=== PATIENT | female | born 1950 | race Caucasian/White ===

== ENCOUNTER 2022-10-12 12:51 | Outpatient (OUT) | payer MEDICARE, OTHER, SELFPAY ==
--- NOTE | 2022-10-12 13:30 | MM_ITS ---
Patient: CHARISSA MORTENSEN Exam Date: 10/12/2022 : 1950 Gender:F Ordering : DR BIBI ALEXANDER M.D. Admission #: [id number] Family : Order #: [id number] CLICK HERE TO VIEW EXAM RADIOLOGY REPORT PROCEDURE: MM TOMOSYNTHESIS SCREENING BI COMPARISON: MG MAMM SCREEN MADDY W CAD, 04/23/2019. MG MAMM SCREEN MADDY W CAD, 07/07/2021. INDICATIONS: Screening Calculator Name NCI Breast Cancer Risk Assessment Tool 5 Year Breast Cancer Risk 2.90% Lifetime Breast Cancer Risk 8.30% Personal Breast Cancer No Personal Ovarian Cancer No Treatments None Family Cancers Father with prostate cancer at age 88. LOCATION: [facility] BREAST COMPOSITION: Heterogeneously dense,which may obscure small masses. FINDINGS: DIAGNOSTIC CATEGORY 2--BENIGN FINDING. NO CHANGE FROM COMPARISON. Scattered benign-appearing nodules are present. Scattered benign-appearing calcifications are present. Scattered benign-appearing lymph nodes are present. RIGHT BREAST: No significant suspicious finding. LEFT BREAST: No significant suspicious finding. RECOMMENDATIONS: ROUTINE MAMMOGRAM AND CLINICAL EVALUATION IN 12 MONTHS. PLEASE NOTE: A NORMAL MAMMOGRAM DOES NOT EXCLUDE THE POSSIBILITY OF BREAST CANCER. A CLINICALLY SUSPICIOUS PALPABLE LUMP SHOULD BE BIOPSIED. Dictated by: Ceferino Barcenas MD on 10/13/2022 at 06:50 Approved by: Ceferino Barcenas MD on 10/13/2022 at 06:59
== END 2022-10-12 12:52 | disposition home or self-care (01) ==
LOC: MAMMO 12:51
PROVIDERS: PCP Internal Medicine; Visit Provider Internal Medicine
DX: Z12.31 Encounter for screening mammogram for malignant neoplasm of breast (principal); Z80.42 Family history of malignant neoplasm of prostate
CPT/HCPCS: 77063; 77067

== ENCOUNTER 2024-07-25 13:22 | Outpatient (OUT) | payer MEDICARE, OTHER, SELFPAY ==
--- OUTSIDE RECORDS SUMMARY | 2024-07-25 13:24 | XMS_ITS | Encounter Summary ---
Author Organization [facility] Address [address] [place] [address] Care Team Providers Care Graduate Assistant Name Role Phone Duran Moulton MD Unavailable [phone] Duran Moulton MD Primary Care Provider [phone] Ever Neal MD Unavailable Unavailable Encounter Details Date Type Department Care Team (Late Contact Info) Description 10/13/2022 Abstract [facility] [address] [facility] [address] [place] [phone] Duran Moulton MD [address] [facility] [address] [place], [place] [id number] Social History Tobacco Use Types Packs/Day Years Used Date Smoking Tobacco: Every Day Cigarettes Smokeless Tobacco: Never Alcohol Use Standard Drinks/Week Comments Never 0 (1 standard drink = 0.6 oz pur e alcohol) caffeine: soda Comments Unknown Sex and Gender Information Value Date Recorded Sex Assigned at Not on file Legal Sex Female 7:12 PM EDT Gender Identity Not on file Sexual Orientation Not on file documented as of this encounter Plan of Treatment Upcoming Encounters Date Type Department Care Team (Late Contact Info) Description 09/03/2024 1:00 PM EDT Office Visit [facility] [address] [facility] [address] [place] [phone] Duran Moulton MD [address] [facility] [address] [place] [address] 01/03/2025 2:00 PM EST Office Visit [facility] [address] [place] [address] Kayli Perdomo MD [address] [facility] [address] [place] [address] documented as of this encounter Visit Diagnoses Not on filedocumented in this encounter Care Teams Graduate Assistant Relationship Specialty Start Date End Date Durna Moulton MD [address] [facility] [address] [place] [address] PCP - ACO Reach 07/22/22 Duran Moulton MD [address] [facility] [address] [place] [address] PCP - General Internal Medicine 09/07/22 Ever Neal MD [address] [facility] [address] [place] [address] Referring Physician Neurology 02/06/24 documented as of this encounter
--- OUTSIDE RECORDS SUMMARY | 2024-07-25 13:24 | XMS_ITS | Encounter Summary ---
Author Organization [facility] Address [address] [facility] [address] [place] [address] Care Team Providers Care Central Office Trouble Shooter Name Role Phone Duran Moulton MD Unavailable [phone] Duran Moulton MD Primary Care Provider [phone] Ever Neal MD Unavailable Unavailable Encounter Details Date Type Department Care Team (Late Contact Info) Description 08/29/2023 Abstract [facility] [address] [facility] 110 [place] [phone] Duran Moulton MD [address] [facility] 110 [place], [place] [phone] Social History Tobacco Use Types Packs/Day Years [...] Visit [facility] [address] [facility] [address] [place] [phone] Duran Moulton MD [address] [facility] 110 [place] [address] 01/03/2025 2:00 PM EST Office Visit [facility] [address] [place] [address] Kayli Perdomo MD [address] [facility] [address] [place] [address] documented as of this encounter Visit Diagnoses Not on filedocumented in this encounter Care Teams Central Office Trouble Shooter Relationship Specialty Start Date End Date Duran Moulton MD [address] [facility] 110 [place] [address] PCP - ACO Reach 07/22/22 Duran Moulton MD [address] [facility] [address] [place] [address] PCP - General Internal Medicine 09/07/22 Ever Neal MD [address] [facility] [address] [place] [address] Referring Physician Neurology 02/06/24 documented as of this encounter
--- OUTSIDE RECORDS SUMMARY | 2024-07-25 13:25 | XMS_ITS | Clinical Summary ---
Author Organization [facility] Address [address] [place] [address] Care Team Providers Care Director Of Radio Services Name Role Phone Duran Moulton MD Primary Care Provider [phone] Allergies Active Allergy Reactions Criticality Noted Date Comments Environmental/Seasonal 07/18/2017 Sinus sx Medications citalopram (CELEXA) 40 MG tablet Take 40 mg by mouth daily Active lisinopril (PRINIVIL;ZESTR IL) 2.5 MG tablet Take 2.5 mg by mouth daily Active simvastatin (ZOCOR) 20 MG tablet Take 20 mg by mouth nightly Active cyclobenzaprine (FLEXERIL) 10 MG tablet Take 10 mg by mouth 3 times daily as needed 3 06/30/2017 Active vitamin C (ASCORBIC ACID) 500 MG tablet Take 500 mg by mouth daily Active Active Problems Problem Noted Date Diagnosed Date Left knee pain 04/14/2021 Vertebral fracture, osteoporotic 04/14/2021 Alzheimer's dementia without behavioral disturba nce 04/14/2021 Lumbar stenosis with neurogenic claudication HTN (hypertension) 07/18/2017 Hyperlipidemia 07/18/2017 Shoulder pain, bilateral 07/18/2017 Tobacco use disorder 07/18/2017 Skull fracture 07/18/2017 Overview (07/18/2017): As a child / fell off hay loft > 12 feet / no seizures Lumbar stenosis 07/18/2017 Spondylolisthesis at L4-L5 level 07/18/2017 Family History Medical History Relation Name Comments Arthritis Brother x 2 High Cholesterol Brother x 2 Alzheimer's Disease Father Cancer Father prostate cancer COPD Mother Heart Disease Mother 5 vessel bypas s Stroke Mother High Blood Pressure Son x 1 Relation Name Status Comments Brother x 2 Alive Daughter x 1 Alive Father Mother Sister none Son x 1 Alive Social History Tobacco Use Types Packs/Day Years Used Date Smoking Tobacco: Every Day Cigarettes 0.5 42 Smokeless Tobacco: Never Alcohol Use Standard Drinks/Week Comments No 0 (1 standard drink = 0.6 oz pur e alcohol) Comments Unknown Sex and Gender Information Value Date Recorded Sex Assigned at Not on file Legal Sex Female 1:45 PM EDT Gender Identity Not on file Sexual Orientation Not on file Last Filed Vital Signs Vital Sign Reading Time Taken Comments Blood Pressure 126/76 04/14/2021 9:56 AM EST Pulse 87 07/21/2017 8:07 AM EDT Temperature 36.7 C (98.1 F) 04/14/2021 9:56 AM EST Respiratory Rate 18 07/21/2017 8:07 AM EDT Oxygen Saturation 97% 07/21/2017 8:07 AM EDT Inhaled Oxygen Concentration - - Weight 59 kg (130 lb) 04/14/2021 9:56 AM EST Height 152.4 cm (5') 04/14/2021 9:56 AM EST Body Mass Index 25.39 04/14/2021 9:56 AM EST Plan of Treatment Not on file Medical Devices Implanted Type Area Animal Skinner Device Identifier Shelf Expiration Date Model / Serial / Lot Kit Sealant Surgiflo Hemostatic Matrix Implanted:Qty: 1 on 07/19/2017 by Jesse Edwards MD at [facility] Bone/[place] t/Tissue/ Human/Syn th N/A: Back [place]: [employer]-PMM 09/27/2018 [id number] / / [id number] Bone Matrix Osteocel Pro Cellular Med - [id number] Implanted:Qty: 1 on 07/19/2017 by Jesse Edwards MD at [facility] Bone/[place] t/Tissue/ Human/Syn th N/A: Back [employer]-PMM 11/26/2020 [id number] / [id number] / [id number] Bone Matrix Osteocel Pro Cellular Med - [id number] Implanted:Qty: 1 on 07/19/2017 by Jesse Edwards MD at [facility] Bone/[place] t/Tissue/ Human/Syn th N/A: Back [employer]-PMM 11/26/2020 [id number] / [id number] / [id number] Graft Canc Chip 30cc 1.3wk19fu - [id number] Implanted:Qty: 1 on 07/19/2017 by Jesse Edwards MD at [facility] Bone/[place] t/Tissue/ Human/Syn th N/A: Back [employer] FND-PMM [id number] / [id number] / Screw Lk Reline Opn [place] 5.5mm - [id number] Implanted:Qty: 4 on 07/19/2017 by Jesse Edwards MD at [facility] Spine N/A: Back [employer]-PMM [id number] / [id number] / Impl Spine Fracisco Reline-O Lrdtc 5.5x40mm - [id number] Implanted:Qty: 2 on 07/19/2017 by Jesse Edwards MD at [facility] Spine N/A: Back [employer]-PMM [id number] / [id number] / Impl Spine Coroent Lg 4t4y24km - [id number] Implanted:Qty: 2 on 07/19/2017 by Jesse Edwards MD at [facility] Spine N/A: Back [employer]-PMM [id number] / [id number] / Sys Fix Reline 0x Conn 40 50mm 5.5lp Adj - [id number] Implanted:Qty: 1 on 07/19/2017 by Jesse Edwards MD at [facility] Spine N/A: Back [employer]PMM [id number] / [id number] / Reline Implanted:Qty: 4 on 07/19/2017 by Jesse Edwards MD at [facility] N/A: Back [id number] / [id number] / Insurance MEDIC[place] [employer] [place] [employer] [employer] [place] Advance Directives Documents on File Type Date Recorded Patient Bacteriologist Medical Expl anation ACP-Advance Directive 07/22/2017 2:27 AM * Full Code (Latest Code Status on File) Date Activated Date Inactivated Comments 07/19/2017 3:00 PM 07/21/2017 5:38 PM Care Teams Director Of Radio Services Relationship Specialty Start Date End Date Duran Moulton MD [address] [facility] [address] [place] [address] PCP - General Internal Medicine 07/15/17
--- OUTSIDE RECORDS SUMMARY | 2024-07-25 13:25 | XMS_ITS | Encounter Summary ---
Author Organization [facility] Address [address] [place] [address] Care Team Providers Care Irs Agent Name Role Phone Duran Moulton MD Unavailable [phone] Duran Moulton MD Primary Care Provider [phone] Ever Neal MD Unavailable Unavailable Encounter Details Date Type Department Care Team (Late Contact Info) Description 12/30/2022 Abstract [facility] [address] [facility] [address] [place] [phone] Duran Moulton MD [address] [facility] [address] [place], [place] [phone] Social History Tobacco Use Types Packs/Day Years [...] [address] [facility] [address] [place] [phone] Duran Moulton MD [address] [facility] [address] [place] [address] 01/03/2025 2:00 PM EST Office Visit [facility] [address] [place] [address] Kayli Perdomo MD [address] [facility] [address] [place] [address] documented as of this encounter Visit Diagnoses Not on filedocumented in this encounter Care Teams Irs Agent Relationship Specialty Start Date End Date Duran Moulton MD [address] [facility] [address] [place] [address] PCP - ACO Reach 07/22/22 Duran Moulton MD [address] [facility] [address] [place] [address] PCP - General Internal Medicine 09/07/22 Ever Neal MD [address] [facility] [address] [place] [address] Referring Physician Neurology 02/06/24 documented as of this encounter
--- OUTSIDE RECORDS SUMMARY | 2024-07-25 13:25 | XMS_ITS | Clinical Summary ---
Author Organization [facility] Address [address] [facility] [place] [address] Care Team Providers Care Chief Optometry Service Name Role Phone Duran Moulton MD Unavailable [phone] Duran Moulton MD Primary Care Provider Ever Neal MD Unavailable Unavailable Allergies No known active allergies Medications HANDICAP PLACARD 5 YEAR 1 (one) time each day at the same time. 11/05/19 22 Active FeroSul 325 (65 Fe) MG tabletIndication s:Iron deficiency TAKE 1 TABLET BY MOUTH ONCE DAILY 90 tablet 3 07/12/19 24 Active citalopram (CeleXA) 40 MG tabletIndication s:Dysthymic disorder (CMS/HCC) TAKE 1 TABLET BY MOUTH ONCE DAILY 90 tablet 11 07/20/19 24 Active cyclobenzaprine (Flexeril) 10 MG tabletIndication s:Lumbar pain,Pars defect of lumbar spine TAKE 1 TABLET BY MOUTH EVERY 8 HOURS 270 tablet 2 11/01/19 24 Active omeprazole (PriLOSEC) [address] capsuleIndicatio ns:Gastritis, presence of bleeding unspecified, unspecified chronicity, unspecified gastritis type TAKE 1 CAPSULE BY MOUTH DAILY 90 capsule 3 12/30/19 24 Active simvastatin (Zocor) 20 MG tabletIndication s:Benign essential hypertension (CMS/HCC) TAKE 1 TABLET BY MOUTH DAILY 100 tablet 3 01/09/20 24 Active memantine (Namenda) 10 MG tabletIndication s:Alzheimer's disease with late onset (CODE) Take 1 tablet (10 mg) by mouth in the morning and 1 tablet (10 mg) before bedtime. 60 tablet 4 03/02/19 25 Active donepezil (Aricept) 10 MG tabletIndication s:Disturbance of memory TAKE 1 TABLET BY MOUTH AT BEDTIME 100 tablet 3 07/05/19 25 Active lisinopril 20 MG tabletIndication s:Essential (primary) hypertension (CMS/HCC) TAKE 1 TABLET BY MOUTH DAILY 100 tablet 3 07/12/19 25 Active traMADol (Ultram) 50 MG tabletIndication s:Spinal stenosis, lumbar region with neurogenic claudication TAKE 1 TABLET BY MOUTH EVERY 6 HOURS NEEDED FOR SEVERE PAIN 120 tablet 1 07/17/19 25 Active donepezil (Aricept) 10 MG tabletIndication s:Disturbance of memory TAKE 1 TABLET BY MOUTH AT BEDTIME 100 tablet 3 06/07/19 24 025 Discontinued lisinopril 20 MG tabletIndication s:Essential (primary) hypertension (CMS/HCC) TAKE 1 TABLET BY MOUTH DAILY 90 tablet 3 07/12/19 24 025 Discontinued traMADol (Ultram) 50 MG tabletIndication s:Spinal stenosis, lumbar region with neurogenic claudication TAKE 1 TABLET BY MOUTH EVERY 6 HOURS NEEDED FOR SEVERE PAIN 120 tablet 06/06/19 25 025 Discontinued mupirocin (Bactroban) 2 % ointmentIndicati ons:Wound of right breast, initial encounter Apply topically in the morning and in the evening and before bedtime. Do all this for 10 days. 22 g 07/04/19 25 025 Active Problems Problem Noted Date Diagnosed Date Alzheimer's disease with late onset (CODE) 03/02 Type 2 diabetes mellitus with other specified co mplication 03/02/2024 Absolute anemia 09/06/2022 Atherosclerosis of elim ira co ronary artery of elim ira heart without angina pectoris 09/06/2022 Breast disorder 09/06/2022 Diabetes mellitus 09/06/2022 Disturbance of memory 09/06/2022 Diverticular disease 09/06/2022 Dysthymia 09/06/2022 Estrogen deficiency 09/06/2022 Gastritis 09/06/2022 Iron deficiency 09/06/2022 Localized osteoarthritis of left knee 09/06/2022 Lumbar disc narrowing 09/06/2022 Lumbar pain 09/06/2022 Osteopenia of multiple sites 09/06/2022 Other chronic pain 09/06/2022 Other general symptoms and signs 09/06/2022 Panlobular emphysema 09/06/2022 Anterolisthesis 09/06/2022 Pars defect of lumbar spine 09/06/2022 Perennial allergic rhinitis 09/06/2022 Skin cancer, basal cell 09/06/2022 Spinal stenosis of lumbar re gion with neurogenic claudication 09/06/2022 Squamous cell carcinoma of left lower leg 2022 Tobacco dependence 09/06/2022 Left knee pain 04/14/2021 HTN (hypertension) 07/18/2017 Shoulder pain, bilateral 07/18/2017 Skull fracture 07/18/2017 Overview (07/03/2024): As a child / fell off hay loft > 12 feet / no seizures Tobacco use disorder 07/18/2017 Benign essential hypertension 10/25/2011 Mixed hyperlipidemia 08/15/2007 Encounters Date Type Department Care Team Description 07/16/2024 Refill [facility] [address] [place] [address] Pauline Ballard MD Spinal stenosis, lumbar region with neurogenic claudication 07/11/2024 Refill [facility] [address] [place] [place] [address] Duran Moulton MD Essential (primary) hypertension (CMS/HCC) 07/04/2024 Abstract [facility] [address] [place] [place] [address] Duran Moulton MD 07/03/2024 3:30 PM EDT Office Visit [facility] [address] [place] [place] [address] Tayler Das PA Wound of right breast, initial encounter (Primary Dx) 07/03/2024 Refill [facility] [address] [place] [place] [address] Duran Moulton MD Disturbance of memory 07/03/2024 Bamboo flowsheet [facility] [address] [place] [place] [address] Tayler Das PA 07/03/2024 Travel 06/05/2024 Refill [facility] [address] [place] [place] [address] Duran Moulton MD Spinal stenosis, lumbar region with neurogenic claudication 05/09/2024 Telephone [facility] [address] [facility] [address] [place] [address] Duran Moulton MD Lab Orders from Last 3 Months Immunizations Immunization Administration Dates Next Due ABRYSVO - Respiratory syncyt ial virus (RSV), vaccine, bivalent, protein subunit RSV prefusion F, diluent reconstituted, 0.5 mL, PF 01/19/2024 Influenza, High Dose Seasona l, Preservative Free 01/04/2024 Influenza, High-dose Seasona l, Quadrivalent, Preservative Free 12/07/2022,12/08/2021,12/03/2020,12/03,12/18/2018 Influenza, injectable, quadr ivalent, preservative free 01/02/2016 Influenza, seasonal, intrade rmal, preservative free 12/20/2016,12/10/2014,12/21/2013 Moderna SARS-CoV-2 Booster Vaccination 2 Pneumococcal Conjugate PCV 20 04/26/2022 Pneumococcal Polysaccharide PPSV23 02/28/2011 Zoster, live 03/05/2013,06/02/2012 Family History Medical History Relation Name Comments Alzheimer's disease Father Cancer Father Melanoma Father Cancer Mother Heart disease Mother Stroke Mother Relation Name Status Comments Father Mother Social History Tobacco Use Types Packs/Day Years Used Date Smoking Tobacco: Every Day Cigarettes 0.5 50 Smokeless Tobacco: Never Tobacco Cessation:Ready to Q uit: Not Asked; Counseling Given: Not Answered Alcohol Use Standard Drinks/Week Comments Never 0 (1 standard drink = 0.6 oz pur e alcohol) caffeine: soda PHQ-2 Answer Date Recorded Patient Health Questionnaire-2 Score 0 07/03/2024 Comments Unknown Sex and Gender Information Value Date Recorded Sex Assigned at Not on file Legal Sex Female 7:12 PM EDT Gender Identity Not on file Sexual Orientation Not on file Last Filed Vital Signs Vital Sign Reading Time Taken Comments Blood Pressure 98/66 07/03/2024 3:35 PM EDT Pulse 66 07/03/2024 3:35 PM EDT Temperature - - Respiratory Rate 16 07/03/2024 3:35 PM EDT Oxygen Saturation 99% 07/03/2024 3:35 PM EDT Inhaled Oxygen Concentration - - Weight 63.8 kg (140 lb 9.6 oz) 07/03/2024 3:35 P M EDT Height 157.5 cm (5' 2 ) 07/03/2024 3:35 PM EDT Body Mass Index 25.72 07/03/2024 3:35 PM EDT Plan of Treatment Upcoming Encounters Date Type Department Care Team (Late st Contact Info) Description 09/03/2024 1:00 PM EDT Office Visit [facility] [address] [place] [place] [address] Duran Moulton MD [address] [place] [address] 01/03/2025 2:00 PM EST Office Visit [facility] [address] [place] [address] Kayli Perdomo MD [address] [place] [address] Health Maintenance Due Date Last Done Comments CT Colonography 1952 FIT-DNA 1952 FIT 1952 FOBT 1952 Sigmoidoscopy 1952 Diabetes: Retinopathy Screening 1962 Mammogram 10/13/2023 10/12/2022, 06/28, 04/24/2019, Additional history exists Diabetes: Hemoglobin A1C 08/15/2024 025, 03/02/2024, 09/07/2023, Additional history exists Medicare Annual Wellness (AWV) 03/02/2025 03/02/2024 , 01/07/2022 Diabetes: Urine Protein Screening 2025 2024, 03/09/2023, 01/04/2020 Colonoscopy 11/15/2029 11/16/2019, 04/07/2015 Colorectal Cancer Screening 11/15/2029 Pneumococcal Vaccine: 65+ Years Completed 3, 02/28/2011 Influenza Vaccine Completed 01/04/2024, , 12/08/2021, Additional history exists Procedures Procedure Name Priority Date/Time Associated Diagnosis Comments MICROALBUMIN / CREATININE URINE RATIO Routine 2024 1:12 PM EDT Type 2 diabetes mellitus without complication, without long-term current use of insulin (CMS/HCC) HEMOGLOBIN A1C Routine 2024 1:12 PM EDT Type 2 diabetes mellitus without complication, without long-term current use of insulin (CMS/HCC) Atherosclerosis of elim ira coronary artery of elim ira heart without angina pectoris (CMS/HCC) COMPREHENSIVE METABOLIC PANEL Routine 2024 1:12 PM EDT Iron deficiency anemia, unspecified iron deficiency anemia type Benign essential hypertension (CMS/HCC) Type 2 diabetes mellitus without complication, without long-term current use of insulin (CMS/HCC) Atherosclerosis of elim ira coronary artery of elim ira heart without angina pectoris (CMS/HCC) Iron deficiency Mixed hyperlipidemia (CMS/HCC) CBC Routine 2024 1:12 PM EDT Iron deficiency anemia, unspecified iron deficiency anemia type Type 2 diabetes mellitus without complication, without long-term current use of insulin (CMS/HCC) Atherosclerosis of elim ira coronary artery of elim ira heart without angina pectoris (CMS/HCC) Iron deficiency LIPID PANEL Routine 2024 1:12 PM EDT Benign essential hypertension (CMS/HCC) Type 2 diabetes mellitus without complication, without long-term current use of insulin (CMS/HCC) Atherosclerosis of elim ira coronary artery of elim ira heart without angina pectoris (CMS/HCC) Mixed hyperlipidemia (CMS/HCC) MAMM SCREENING BILATERAL W/O CAD(D) Routine 10/12/2022 COLONOSCOPY Routine 11/16/2019 12:00 PM EDT from Last 3 Months or Most Recently Relevant to Health Maintenance Results * Microalbumin / creatinine, urine ratio (2024 1:12 PM EDT) Pathologist [facility] CREATININE, RANDOM URINE 107 20 - 275 mg/dL [facility] ALBUMIN, URINE 1.4 See Note: mg/dL [facility] Comment: Reference Range: Reference Range Not established ALBUMIN/CREATININE RATIO, RANDOM URINE 13 <30 mg/g creat [facility] Comment: The ADA defines abnormalities in albumin excretion as follows: Albuminuria Category Result (mg/g creatinine) Normal to Mildly increased <30 Moderately increased 30-299 Severely increased > OR = 300 The ADA recommends that at least two of three specimens collected within a 3-6 month period be abnormal before considering a patient to be within a diagnostic category. Urine Urine specimen obtained by clean catch procedure / Unknown 2024 1:12 PM EDT 2024 1:12 PM EDT Narrative [facility] - 05/16/2024 7:07 PM EDT FASTING:YES FASTING: YES Resulting Agency Comment Performing Organization Information Site ID: QPT Name: [email or web address] Address: [address] [place] [address], [address] [place] [phone] Director: Abimael Owens MD us Duran Moulton MD LAB URINE ORDERABLES Final Res ult [facility] * (ABNORMAL) CBC (2024 1:12 PM EDT) Pathologist [facility] WHITE BLOOD CELL COUNT 8.6 3.8 - 10.8 Thousand/u L [facility] RED BLOOD CELL COUNT 3.71(L) 3.80 - 5.10 Million/uL [facility] HEMOGLOBIN 12.5 11.7 - 15.5 g/dL [facility] HEMATOCRIT 37.9 35.0 - 45.0 % [facility] MCV 102.2(H) 80.0 - 100.0 fL [facility] MCH 33.7(H) 27.0 - 33.0 pg [facility] MCHC 33.0 32.0 - 36.0 g/dL [facility] Comment: For adults, a slight decrease in the calculated MCHC value (in the range of 30 to 32 g/dL) is most likely not clinically significant; however, it should be interpreted with caution in correlation with other red cell parameters and the patient's clinical condition. RDW 11.8 11.0 - 15.0 % [facility] PLATELET COUNT 216 140 - 400 Thousand/u L [facility] MPV 10.1 7.5 - 12.5 fL [facility] Blood Venous blood specimen / Unknown 2024 1:12 PM EDT 2024 1:12 PM EDT Narrative [facility] - 05/16/2024 7:07 PM EDT FASTING:YES FASTING: YES Resulting Agency Comment Performing Organization Information Site ID: QPT Name: [email or web address] Address: [facility], [address] [place] [phone] Director: Abimael Owens MD us Duran Moulton MD LAB BLOOD ORDERABLES Final Res ult Performing Organization Address [facility] de Phone Number [facility] * (ABNORMAL) Hemoglobin A1c (2024 1:12 PM EDT) Hemoglobin A1C 6.2(H) <5.7 % of total Hgb [facility] Comment: For someone without known diabetes, a hemoglobin A1c value between 5.7% and 6.4% is consistent with prediabetes and should be confirmed with a follow-up test. For someone with known diabetes, a value <7% indicates that their diabetes is well controlled. A1c targets should be individualized based on duration of diabetes, age, comorbid conditions, and other considerations. This assay result is consistent with an increased risk of diabetes. Currently, no consensus exists regarding use of hemoglobin A1c for diagnosis of diabetes for children. Blood Venous blood specimen / Unknown 2024 1:12 PM EDT 2024 1:12 PM EDT Narrative [facility] - 05/16/2024 7:07 PM EDT FASTING:YES FASTING: YES Resulting Agency Comment Performing Organization Information Site ID: QPT Name: [email or web address] Address: Monica [facility], [address] [place] [phone] Director: Abimael Owens MD us Duran Moulton MD LAB BLOOD ORDERABLES Final Res ult Performing Organization Address [facility] Co de Phone Number [facility] * (ABNORMAL) Lipid panel (2024 1:12 PM EDT) CHOLESTEROL, TOTAL 198 <200 mg/dL [facility] HDL CHOLESTEROL 47(L) > OR = 50 mg/dL [facility] TRIGLYCERIDES 136 <150 mg/dL [facility] LDL-CHOLESTEROL 126(H) mg/dL (calc) [facility] Comment: Reference range: <100 Desirable range <100 mg/dL for primary prevention; <70 mg/dL for patients with CHD or diabetic patients with > or = 2 CHD risk factors. LDL-C is now calculated using the Geovany calculation, which is a validated novel method providing better accuracy than the Friedewald equation in the estimation of LDL-C. Angelito SS et al. GARRET. 2013;310(19): 6706-6524 (http://education.[employer]/faq/JXS606) CHOL/HDLC RATIO 4.2 <5.0 (calc) [facility] NON HDL CHOLESTEROL 151(H) <130 mg/dL (calc) [facility] Comment: For patients with diabetes plus 1 major ASCVD risk factor, treating to a non-HDL-C goal of <100 mg/dL (LDL-C of <70 mg/dL) is considered a therapeutic option. Blood Venous blood specimen / Unknown 2024 1:12 PM EDT 2024 1:12 PM EDT Narrative [facility] - 05/16/2024 7:07 PM EDT FASTING:YES FASTING: YES Resulting Agency Comment Performing Organization Information Site ID: QPT Name: [email or web address] Address: [address] [place] [address], [address] [place] [phone] Director: Abimael Owens MD us Duran Moulton MD LAB BLOOD ORDERABLES Final Res ult [facility] * (ABNORMAL) Comprehensive metabolic panel (2024 1:12 PM EDT) Glucose 90 65 - 99 mg/dL [facility] Comment: Fasting reference interval BUN 45(H) 7 - 25 mg/dL [facility] Creatinine 1.35(H) 0.60 - 1.00 mg/dL [facility] EGFR 42(L) > OR = 60 mL/min/1.7 3m2 [facility] BUN/CREATININE RATIO 33(H) 6 - 22 (calc) [facility] Sodium 138 135 - 146 mmol/L [facility] Potassium, Bld 4.8 3.5 - 5.3 mmol/L [facility] Chloride 107 98 - 110 mmol/L [facility] Carbon Dioxide 22 20 - 32 mmol/L [facility] Calcium 9.7 8.6 - 10.4 mg/dL [facility] PROTEIN, TOTAL 7.0 6.1 - 8.1 g/dL [facility] ALBUMIN 4.2 3.6 - 5.1 g/dL [facility] GLOBULIN 2.8 1.9 - 3.7 g/dL (calc) [facility] ALBUMIN/GLOBULIN RATIO 1.5 1.0 - 2.5 (calc) [facility] BILIRUBIN, TOTAL 0.3 0.2 - 1.2 mg/dL [facility] ALKALINE PHOSPHATASE 78 37 - 153 U/L [facility] AST 20 10 - 35 U/L [facility] ALT 30(H) 6 - 29 U/L [facility] Blood Venous blood specimen / Unknown 2024 1:12 PM EDT 2024 1:12 PM EDT Narrative [facility] - 05/16/2024 7:07 PM EDT FASTING:YES FASTING: YES Resulting Agency Comment Performing Organization Information Site ID: QPT Name: [email or web address] Address: [address] [place] [address], [address] [place] [phone] Director: Abimael Owens MD us Duran Moulton MD LAB BLOOD ORDERABLES Final Res ult Performing Organization Address City/State/[facility] Co de Phone Number [facility] * MAMM SCREENING BILATERAL W/O CAD(D) (10/12/2022) Anatomical Region Laterality Modality Radiographic Cherie ging 10/12/2022 Narrative 10/12/2022 12:09 PM EDT neg us Duran Moulton MD IMG XR PROCEDURES Final Result * Colonoscopy (11/16/2019 12:00 PM EDT) Anatomical Region Laterality Modality Endoscopy 11/16/2019 12:0 0 PM EDT Narrative 11/16/2019 12:00 PM EDT PERFORMED AT [facility] LOCATION:[id number] SSI - repeat in 10 yrs Procedure Note CONVERSION, GENERIC - 07/14/2022 PERFORMED AT [facility] LOCATION:[id number] SSI - repeat in 10 yrs Duran Moulton MD ENDOSCOPY PROCEDURE ORDERABLES Final Result from Last 3 Months or Most Recently Relevant to Health Maintenance Insurance MEDICARE [facility] [id number] Care Teams Chief Optometry Service Relationship Specialty Start Date End Date Duran Moulton MD [address] [place] [address] PCP - ACO Reach 07/22/22 Duran Moulton MD [address] [place] [address] PCP - General Internal Medicine 09/07/22 Ever Neal MD [address] [place] [address] Referring Physician Neurology 02/06/24
--- OUTSIDE RECORDS SUMMARY | 2024-07-25 13:25 | XMS_ITS | Encounter Summary ---
Author Organization [facility] Address [address] [facility] [place] [address] Care Team Providers Care Casting Machine Set Up Operator Name Role Phone Duran Moulton MD Unavailable [phone] Duran Moulton MD Primary Care Provider [phone] Ever Neal MD Unavailable Unavailable Reason for Visit * Reason Comments Med Refill Encounter Details Date Type Department Care Team (Late Contact Info) Description 07/16/2024 Refill [facility] [address] [facility] [address] [place] [address] Pauline Ballard MD [address] [facility] [address] [place], [place] [id number] Spinal stenosis, lumbar region with neurogenic claudication Social History Tobacco Use Types Packs/Day Years Used Date Smoking Tobacco: Every Day Cigarettes 0.5 50 Smokeless Tobacco: Never Alcohol Use Standard Drinks/Week [...] Office Visit [facility] [address] [facility] [address] [place] [phone] Duran Moulton MD [address] [facility] [address] [place], [place] [id number] 01/03/2025 2:00 PM EST Office Visit [facility] [address] [place] [address] Kayli Perdomo MD [address] [place] [address] documented as of this encounter Visit Diagnoses Diagnosis Spinal stenosis, lumbar region with neurogenic claudication documented in this encounter Care Teams Casting Machine Set Up Operator Relationship Specialty Start Date End Date Duran Moulton MD [address] [facility] [address] [place] [address] PCP - ACO Reach 07/22/22 Duran Moulton MD [address] [facility] [address] [place] [address] PCP - General Internal Medicine 09/07/22 Ever Neal MD [address] [facility] [address] [place] [address] Referring Physician Neurology 02/06/24 documented as of this encounter
--- OUTSIDE RECORDS SUMMARY | 2024-07-25 13:25 | XMS_ITS | Encounter Summary ---
Author Organization [facility] Address [address] [facility] [place] [address] Care Team Providers Care Inspector Agricultural Commodities Name Role Phone Duran Moulton MD Unavailable [phone] Duran Moulton MD Primary Care Provider [phone] Ever Neal MD Unavailable Unavailable Encounter Details Date Type Department Care Team (Late Contact Info) Description 03/05/2024 Abstract [facility] 112 [facility] 110 [place] [phone] Duran Moulton MD 112 [facility] [address] [place], [place] [id number] Social History Tobacco Use Types Packs/Day Years Used Date Smoking Tobacco: Every Day Cigarettes 0.5 50 Smokeless Tobacco: Never Alcohol Use Standard Drinks/Week Comments Never 0 (1 standard drink = 0.6 oz pur e alcohol) caffeine: soda PHQ-2 Answer Date Recorded Patient Health Questionnaire-2 Score 0 03/02/2024 Comments Unknown Sex and Gender Information Value Date Recorded Sex Assigned at Not on file Legal Sex Female 7:12 PM EDT Gender Identity Not on file Sexual Orientation Not on file documented as of this encounter Plan of Treatment Upcoming Encounters Date Type Department Care Team (Late Contact Info) Description 09/03/2024 1:00 PM EDT Office Visit [facility] [address] [facility] 110 [place] [phone] Duran Moulton MD 112 [facility] [address] [place], [place] [id number] 01/03/2025 2:00 PM EST Office Visit [facility] [address] [place] [address] Kayli Perdomo MD [address] [place] [address] documented as of this encounter Visit Diagnoses Not on filedocumented in this encounter Care Teams Inspector Agricultural Commodities Relationship Specialty Start Date End Date Duran Moulton MD [address] [facility] 110 [place] [address] PCP - ACO Reach 07/22/22 Duran Moulton MD [address] [facility] 110 [place] [address] PCP - General Internal Medicine 09/07/22 Ever Neal MD [address] [facility] [address] [place] [address] Referring Physician Neurology 02/06/24 documented as of this encounter
--- OUTSIDE RECORDS SUMMARY | 2024-07-25 13:25 | XMS_ITS | Encounter Summary ---
Author Organization [facility] Address [address] [place] [address] Care Team Providers Care Ripsaw Grader Name Role Phone Duran Moulton MD Unavailable [phone] Duran Moulton MD Primary Care Provider [phone] Ever Neal MD Unavailable Unavailable Reason for Visit * Reason Comments Med Refill Encounter Details Date Type Department Care Team (Late Contact Info) Description 07/11/2024 Refill [facility] [address] [facility] [address] [place] [address] Duran Moulton MD [address] 110 [place], [place] [phone] Essential (primary) hypertension (CMS/HCC) Social History Tobacco Use Types Packs/Day Years [...] Upcoming Encounters Date Type Department Care Team ([facility] Contact Info) Description 09/03/2024 1:00 PM EDT Office Visit [facility] [address] [facility] [address] [place] [phone] Duran Moulton MD [address] [facility] 110 [place], [place] [address] 01/03/2025 2:00 PM EST Office Visit [facility] [address] [place] [address] Kayli Perdomo MD [address] [place] [address] documented as of this encounter Visit Diagnoses Diagnosis Essential (primary) hypertension (CMS/HCC) Unspecified essential hypertension documented in this encounter Care Teams Ripsaw Grader Relationship Specialty Start Date End Date Duran Moulton MD [address] [facility] 110 [place] [address] PCP - ACO Reach 07/22/22 Duran Moulton MD [address] [facility] [address] [place] [address] PCP - General Internal Medicine 09/07/22 Ever Neal MD [address] [facility] [address] [place] [address] Referring Physician Neurology 02/06/24 documented as of this encounter
--- OUTSIDE RECORDS SUMMARY | 2024-07-25 13:25 | XMS_ITS | Encounter Summary ---
Author Organization [facility] Address [address] [facility] [place] [address] Care Team Providers Care Shaker Plate Operator Name Role Phone Duran Moulton MD Unavailable [phone] Duran Moulton MD Primary Care Provider [phone] Ever Neal MD Unavailable Unavailable Encounter Details Date Type Department Care Team (Late Contact Info) Description 07/04/2024 Abstract [facility] [address] [facility] [address] [place] [phone] Duran Moulton MD 112 [facility] [address] [place], [place] [id number] Social History Tobacco Use Types Packs/Day Years [...] Upcoming Encounters Date Type Department Care Team ([facility] Contact Info) Description 09/03/2024 1:00 PM EDT Office Visit [facility] [address] [facility] 110 [place] [phone] Duran Moulton MD 112 [facility] 110 [place], [place] [id number] 01/03/2025 2:00 PM EST Office Visit [facility] [address] [place] [address] Kayli Perdomo MD [address] [place] [place] [address] documented as of this encounter Visit Diagnoses Not on filedocumented in this encounter Care Teams Shaker Plate Operator Relationship Specialty Start Date End Date Duran Moulton MD [address] [facility] 110 [place] [address] PCP - ACO Reach 07/22/22 Duran Moulton MD [address] [facility] [address] [place] [address] PCP - General Internal Medicine 09/07/22 Ever Neal MD [address] [facility] [address] [place] [address] Referring Physician Neurology 02/06/24 documented as of this encounter
--- OUTSIDE RECORDS SUMMARY | 2024-07-25 13:25 | XMS_ITS | Encounter Summary ---
Author Organization [facility] Address [address] [place] [address] Care Team Providers Care Marketing Representative Name Role Phone Duran Moulton MD Unavailable [phone] Duran Moulton MD Primary Care Provider [phone] Ever Neal MD Unavailable Unavailable Encounter Details Date Type Department Care Team (Late Contact Info) Description 08/30/2023 Abstract [facility] [address] [facility] 110 [place] [phone] Duran Moulton MD 112 [facility] 110 [place], [place] [phone] Social History Tobacco Use Types Packs/Day Years [...] Visit [facility] [address] [facility] [address] [place] [phone] Duran Moulton MD [address] [facility] 110 [place] [address] 01/03/2025 2:00 PM EST Office Visit [facility] [address] [place] [address] [place] [address] Kayli Perdomo MD [address] [facility] 350 [place] [address] documented as of this encounter Visit Diagnoses Not on filedocumented in this encounter Care Teams Marketing Representative Relationship Specialty Start Date End Date Duran Moulton MD [address] [facility] 110 [place] [address] PCP - ACO Reach 07/22/22 Duran Moulton MD [address] [facility] 110 [place] [address] PCP - General Internal Medicine 09/07/22 Ever Neal MD [address] [facility] [address] [place] [address] Referring Physician Neurology 02/06/24 documented as of this encounter
--- NOTE | 2024-07-25 13:29 | MM_ITS ---
Patient Name: CHARISSA MORTENSEN MR#: [id number] : 1950 Exam Date: 07/25/2024 Ordering Doctor: DR BIBI ALEXANDER M.D. RADIOLOGY REPORT PROCEDURE: MM TOMOSYNTHESIS SCREENING BI COMPARISON: MM TOMOSYNTHESIS SCREENING BI, 10/12/2022. MG MAMM SCREEN MADDY W CAD, 07/07/2021. MG MAMM SCREEN MADDY W CAD, 04/23/2019. MG MAMM SCREEN MADDY W CAD, 05/31/2017. INDICATIONS: Screening Calculator Name NCI Breast Cancer Risk Assessment Tool 5 Year Breast Cancer Risk 2.90% Lifetime Breast Cancer Risk 7.50% Personal Breast Cancer No Personal Ovarian Cancer No Treatments None Family Cancers Father with prostate cancer at age 88. LOCATION: [facility] BREAST COMPOSITION: There are scattered areas of fibroglandular density. FINDINGS: DIAGNOSTIC CATEGORY 2--BENIGN FINDING: RIGHT BREAST: No significant suspicious finding. There are similar focal asymmetries. Benign-appearing calcifications are present. LEFT BREAST: No significant suspicious finding. There are similar focal asymmetries. Benign-appearing calcifications are present . RECOMMENDATIONS: ROUTINE MAMMOGRAM AND CLINICAL EVALUATION IN 12 MONTHS. PLEASE NOTE: A NORMAL MAMMOGRAM DOES NOT EXCLUDE THE POSSIBILITY OF BREAST CANCER. A CLINICALLY SUSPICIOUS PALPABLE LUMP SHOULD BE BIOPSIED. Dictated by: Mike Sinclair MD on 07/25/2024 at 16:08 Approved by: Mike Sinclair MD on 07/25/2024 at 16:12
--- NOTE | 2024-07-25 13:29 | CT_ITS ---
[address] [address] Patient Name: CHARISSA MORTENSEN MRN: [id number] date: 1950 Sex: F Assigned Patient Location: [facility] Current Patient Location: [facility] Accession/Order Number: [id number] Exam Date: 07/25/2024 15:56 Report Date: 07/25/2024 16:00 At the request of: BIBI ALEXANDER Procedure: CT lung screening low-dose CT Chest low dose lung screening without contrast TECHNIQUE: Axial imaging with 2-D reconstruction. The CT exam was performed using one or more the following dose reduction techniques: Automated exposure control, adjustment of the MA and/or Kv according to patient size, or use of the iterative reconstruction technique. History: Current smoker COMPARISON: 02/02/2022 THYROID: Unremarkable TRACHEA AND BRONCHI: Patent ESOPHAGUS: Unremarkable. HEART: Within normal limits PERICARDIAL EFFUSION: None CORONARY ARTERY CALCIFICATION: Present MEDIASTINUM: No adenopathy. No pneumoperitoneum. No mediastinal hematoma. PULMONARY KAM: No hilar mass or adenopathy is seen. THORACIC AORTA Unremarkable LUNG NODULE None LUNGS: Lungs are clear PLEURAL EFFUSION: None PNEUMOTHORAX: No pneumothorax seen. CHEST WALL: No abnormality AXILLA:Unremarkable BONY STRUCTURES thoracic spondylosis. UPPER ABDOMEN: Images of the upper abdomen are noncontributory. CT/CT lung screening low-dose IMPRESSION: No visible lung nodule. FINAL ASSESSMENT: Negative. Lung-RADS Version 1.0 Assessment Category: 1 REMARKS: Continued annual screening with LDCT in 12 months is recommended. Impression dictated by: Mikal Emerson M.D. 07/25/2024 4:00 PM Dictation Location: NoWait Electronically authenticated by: [id number] Y Date: 07/25/2024 16:00
== END 2024-07-25 13:23 | disposition home or self-care (01) ==
LOC: MAMMO 13:22
PROVIDERS: PCP Internal Medicine; Visit Provider Internal Medicine
DX: Z12.31 Encounter for screening mammogram for malignant neoplasm of breast (principal); E28.39 Other primary ovarian failure; F17.200 Nicotine dependence, unspecified, uncomplicated; F17.210 Nicotine dependence, cigarettes, uncomplicated
CPT/HCPCS: 71271; 77063; 77067; 77080

== ENCOUNTER 2024-10-16 02:36 | Emergency (ER) | payer MEDICARE, OTHER, SELFPAY ==
[2024-10-16] VITALS (37 sets, daily range): BP systolic 97–135; BP diastolic 50–75; PULSE 75–104; TEMP 37.1; O2SAT 84–96; BMI 29.8
--- NOTE | 2024-10-16 02:44 | ECG_ITS ---
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
--- NOTE | 2024-10-16 02:58 | ED_ITS ---
HPI HPI - General Adult General Chief complaint: Dizziness Stated complaint: FALL Time Seen by Provider: 10/16/24 02:42 Source: patient and family Mode of arrival: ambulance Limitations: other Limitations comment: Hx Dementia, patient cannot recall recent events History of Present Illness HPI narrative: This 74-year-old female with a history of Alzheimer's dementia for the past 3 years at least according to her is brought to the emergency department by EMS. The patient's states that she was at her baseline mental status over the weekend and yesterday seemed a little off . She was in bed this morning and the heard a noise coming from her room. He went into her room and found her on the floor. Her underwear was down around her knees and she had been incontinent of urine. In the emergency department she is awake, alert, oriented to person, knows she is in the hospital. When asked what year it was she states I do not know I have Alzheimer's she denies any headache, neck pain or back pain. She has no focal weakness numbness or other neurologic deficit. She is moving all extremities. There is no sign of any injury. Her only complaint is that she is thirsty and wants water. EMS was called and she was transported to the hospital. An EKG was transmitted to the hospital showing atrial fibrillation at 97 bpm. She does not have a history of atrial fibrillation according to her . No records are available for comparison purposes. Related Data Home Medications ?Medication ?Instructions ?Recorded ?Confirmed aspirin 81 mg tablet,delayed 81 mg PO DAILY 10/16/24 0 10/16/24 release (Debbie Low Dose Aspirin) citalopram 40 mg tablet mg 10/16/24 cyclobenzaprine 10 mg tablet mg 10/16/24 ferrous sulfate 325 mg (65 mg mg 10/16/24 iron) tablet (FeroSul) lisinopril 20 mg tablet mg 10/16/24 memantine 10 mg tablet mg 10/16/24 omeprazole 40 mg capsule,delayed mg 10/16/24 release simvastatin 20 mg tablet mg 10/16/24 tramadol 50 mg tablet mg 10/16/24 Allergies Allergy/AdvReac Type Severity Reaction Status Date / Time No Known Drug Allergies Allergy Verified 10/16/24 02:45 Review of Systems ROS Status of ROS 10 or more systems reviewed and unremark able except as noted in history and below PFSH PFSH Social History Little interest or pleasure in doing things: not at all Feeling down, depressed, or hopeless: not at all Exam Narrative Exam Narrative: Vital signs and Nursing Notes reviewed: Patient is afebrile with a normal pulse, normal blood pressure, she is not hypoxic with pulse ox of 95% on room air General: Awake, alert, oriented, no acute distress, lying comfortably on the stretcher-irritable but at baseline according to , no distress noted HEENT: Normocephalic atraumatic, no scalp tenderness, ecchymosis, abrasion or other notable abnormality mucous membranes are moist and pink, eyes are clear, normal conjunctiva, vision is grossly intact, posterior pharynx is normal in appearance. Neck: Supple, no midline bony vertebral tenderness or step-off Chest: Lungs are clear to auscultation with good air entry, there is no wheezing rhonchi or rales appreciated no accessory muscle use, patient is speaking in complete sentences-no chest wall tenderness to palpation CVS: Regular rate and rhythm S1-S2, no murmurs rubs or gallops, pulses are brisk and equal bilaterally ABD: Soft, nondistended, nontender, no rebound guarding or rigidity, bowel sounds are normal, no pulsatile masses appreciated Extremities: Moving all extremities, no lower extremity tenderness or swelling noted, negative Homans' sign, pulses are brisk and equal bilaterally Skin: Normal in appearance without rash,pallor, petechiae or purpura Neuro: No focal deficits, speech is clear, there is no facial droop, patient is able to pull herself to a seated position. Patient moves lower extremities without difficulty. Stitching Machine Feeder Or Offbearer strength is intact Constitutional Vital Signs, click to edit/add: Last Vital Signs Temp 98.7 F 10/16/24 02:38 Pulse 83 10/16/24 05:50 Resp 19 10/16/24 05:50 BP 110/63 10/16/24 05:49 Pulse Ox 93 L 10/16/24 04:01 O2 Del Method Room Air 10/16/24 02:38 Course Vital Signs Vital signs: Vital Signs Temperature 98.7 F 10/16/24 02:38 Pulse Rate 88 10/16/24 02:38 Respiratory Rate 18 10/16/24 02:38 Blood Pressure 120/75 10/16/24 02:38 Pulse Oximetry 95 10/16/24 02:38 Oxygen Delivery Method Room Air 10/16/24 02:38 Temperature 98.7 F 10/16/24 02:38 Pulse Rate 83 10/16/24 05:50 Respiratory Rate 19 10/16/24 05:50 Blood Pressure 110/63 10/16/24 05:49 Pulse Oximetry 93 L 10/16/24 04:01 Oxygen Delivery Method Room Air 10/16/24 02:38 Medical Decision Making MDM Narrative Medical decision making narrative: This 74-year-old female is brought to the emergency department by EMS. The patient's states that he heard her fall tonight. He went in the room and found her on the floor. She has a history of dementia and cannot provide any recent history but he states yesterday she seemed like she was off . She was in her normal state of health over the weekend. EMS was called and she was brought to the emergency department. EKG that was transmitted by EMS showed an atrial fibrillation with rate control at 97 bpm. An IV had been established by then and she was receiving IV fluids. She does not have any specific complaints. She has no focal neurologic symptoms or sign of any injury. EKG done upon arrival was A-fib at 92 bpm with a normal axis and nonspecific ST changes. She was placed on the manager monitoring. I was watching the monitor and appeared that she had converted into a sinus rhythm. Repeat EKG is a sinus rhythm at 93 bpm with a normal axis. A workup was ordered including CBC with differential, comprehensive metabolic profile, troponin and urinalysis as well as CT scan of the brain, cervical spine and chest x-ray. She has a normal white count and hemoglobin is mildly low at 10.2. Electrolytes are normal with mildly elevated creatinine at 1.47. I do not have any prior labs for comparison. Initial troponin is elevated at 233.8. Urine is negative for infection. Delta troponin is 312.8, BNP is 1391 CT scan of the brain and cervical spine was ordered and was reviewed by radiology. CT scan of the brain shows no evidence of mass, mass effect hemorrhage intra or extra-axial abnormal fluid collection or midline shift. There is white matter hypodensity bilaterally in the periventricular subcortical and deep white matter tracts consistent with mild chronic small vessel white matter ischemic change with mild parenchymal volume loss dueñas-white differentiation is maintained. CT scan of the cervical spine is negative for fracture or subluxation with normal prevertebral soft tissues. Degenerative changes and left carotid artery calcifications are noted. Chest x-ray shows mild cardiomegaly with calcified aorta but no acute pulmonary infiltrate or sign of heart failure. The results of these findings and the patient's intermittent atrial fibrillation were discussed at length with the patient's family, her , daughter and son are both present in the emergency department. She is having intermittent runs of atrial fibrillation on the monitor. EKG does not show any sign of acute [place]. The patient will be given a dose of IV Lopressor and subq Lovenox for the new onset atrial fibrillation. The CODE STATUS was discussed with the family as well. They do not wish to have the patient resuscitated if the need arises. They do not wish to have CPR performed or have the patient placed on a ventilator due to her dementia. The family agrees that the patient would not consent to those resuscitative measures. Case was discussed with the hospitalist suggested the patient will likely need a cardiac catheterization. He suggest that the patient be transferred to [facility] if the family is in agreement with a cardiac cath otherwise the patient can be admitted here for medical management. This was discussed at length with the family who is in agreement with transfer for evaluation for a cardiac catheterization. Case discussed with Dr Lui- she is accepted for transfer. She remains hemodynamically stable in the ED. Lab Data Lab results reviewed: Yes I reviewed the patient's lab results Labs: Lab Results 10/16/24 10/16/24 10/16/24 Range/Units 02:50 03:45 04:10 WBC 6.6 (4.0-11.0) 10^3/uL RBC 2.99 L (4.20-5.40) 10^6/uL Hgb 10.2 L (12.0-16.0) g/dL Hct 29.9 L (36.0-48.0) % MCV 100.0 H (81.0-99.0) fL MCH 34.1 H (26.7-34.0) pg MCHC 34.1 (29.9-35.2) g/dL RDW 12.3 (11.0-15.0) % Plt Count 159 (150-450) 10^3/uL MPV 10.1 (9.5-13.5) fL Neut % (Auto) 86.6 H (43.0-75.0) % Lymph % (Auto) 5.0 L (20.5-60.0) % [place] % (Auto) 5.8 (1.7-12.0) % Eos % (Auto) 0.9 (0.9-7.0) % Baso % (Auto) 1.1 (0.2-2.0) % Neut # (Auto) 5.7 (1.4-6.5) 10^3/uL Lymph # (Auto) 0.3 L (1.2-3.8) 10^3/uL [place] # (Auto) 0.4 (0.3-0.8) 10^3/uL Eos # (Auto) 0.1 (0.0-0.7) 10^3/uL Baso # (Auto) 0.1 (0.0-0.1) 10^3/uL Abs Immat Gran (auto) 0.04 H (0.00-0.03) 10^3/uL Imm/Tot Granulo (auto) 0.6 H (0.0-0.5) % Sodium 139 (136-145) mmol/L Potassium 4.0 (3.5-5.1) mmol/L Chloride 106 (98-107) mmol/L Carbon Dioxide 24.6 (21.0-32.0) mmol/L Anion Gap 12.4 BUN 41.0 H (7.0-18.0) mg/dL Creatinine 1.47 H (0.55-1.02) mg/dL Est GFR ( Amer) 42 L (>=60 mL/min/1.73m^2) Est GFR (Non-Af Amer) 35 L (>=60 mL/min/1.73m^2) BUN/Creatinine Ratio 27.9 Glucose 134 H (74-106) mg/dL Lactate 1.1 (0.4-2.0) mmol/L Calcium 8.6 (8.5-10.1) mg/dL Total Bilirubin 0.1 L (0.2-1.0) mg/dL AST 21 (15-37) U/L ALT 30 (14-59) U/L Alkaline Phosphatase 82 (46-116) U/L Troponin I High Sens 233.8 H* 312.8 H* (4.0-51.3) pg/mL NT-Pro-B Natriuret Pep 1391.0 H* (<=900.0) pg/mL Total Protein 6.9 (6.4-8.2) g/dL Albumin 2.8 L (3.4-5.0) g/dL Globulin 4.1 g/dL Albumin/Globulin Ratio 0.7 Urine Color Lt. yellow (YELLOW) Urine Clarity Clear (CLEAR) Urine pH 6.0 (5.0-9.0) Ur Specific [place] 1.010 (1.005-1.025) Urine Protein Negative (NEG/TRACE) mg/dL Urine Glucose (UA) Negative (NEGATIVE) mg/dL Urine Ketones Negative (NEGATIVE) mg/dL Urine Occult Blood Small A (NEGATIVE) Urine Nitrite Negative (NEGATIVE) Urine Bilirubin Negative (NEGATIVE) Urine Urobilinogen 0.2 (0.2-1.0) EU/dL Ur Leukocyte Esterase Trace A (NEGATIVE) Urine RBC 0-2 (0-2) #/HPF Urine WBC 0-2 A (NONE SEEN) #/HPF Ur Squamous Epith Cells Rare (NONE/RARE) #/LPF Urine Crystals None seen (None Seen) #/HPF Urine Bacteria Trace A (NONE SEEN) #/HPF Urine Casts None seen (NONE SEEN) #/LPF Urine Mucus None seen (NONE SEEN) Ur Culture Indicated? No ECG Data Attestation: I personally reviewed and interpreted this ECG as follows: (EKG #1 atrial fibrillation at 92 bpm, normal axis, nonspecific ST changes, no acute ST segment elevation or T wave inversion, EKG #2 sinus rhythm with frequent PVCs at 93 bpm, normal axis, no acute ST segment elevation or T wave inversion) Discharge Plan Discharge Chief Complaint: Dizziness Clinical Impression: Paroxysmal atrial fibrillation, Fall, Elevated troponin Patient Disposition: [facility] Time of Disposition Decision: 06:02 Discharge Location: [facility] Mode of Transportation: EMS
--- NOTE | 2024-10-16 02:58 | ECG_ITS ---
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
[2024-10-16 03:33] LABS: Hematocrit 29.9 % (36.0-48.0); Hemoglobin 10.2 g/dL (12.0-16.0); Immature Granulocytes Abs Auto 0.04 10^3/uL (0.00-0.03); Immature Granulocytes Pct Auto 0.6 % (0.0-0.5); Lymphocytes Absolute Auto 0.3 10^3/uL (1.2-3.8); Mean Corpuscular HGB Conc 34.1 g/dL (29.9-35.2); Mean Corpuscular Hemoglobin 34.1 pg (26.7-34.0); Mean Corpuscular Volume 100.0 fL (81.0-99.0); Platelet Count 159 10^3/uL (150-450); Red Blood Count 2.99 10^6/uL (4.20-5.40); White Blood Count 6.6 10^3/uL (4.0-11.0)
[2024-10-16 03:52] LABS: Glucose Urine UA NEGATIVE (NEGATIVE)
[2024-10-16 03:53] LABS: Lactate/Lactic Acid 1.1 mmol/L (0.4-2.0)
[2024-10-16 04:00] LABS: Alanine Aminotransferase 30 U/L (14-59); Albumin Globulin Ratio 0.7; Albumin Level 2.8 g/dL (3.4-5.0); Alkaline Phosphatase 82 U/L (46-116); Anion Gap 12.4; Aspartate Amino Transferase 21 U/L (15-37); Blood Urea Nitrogen 41.0 mg/dL (7.0-18.0); Calcium 8.6 mg/dL (8.5-10.1); Carbon Dioxide 24.6 mmol/L (21.0-32.0); Chloride 106 mmol/L (98-107); Estimated GFR (African America 42 (>=60 mL/min/1.73m^2); Estimated GFR (Non-African Ame 35 (>=60 mL/min/1.73m^2); Globulin 4.1 g/dL; Glucose 134 mg/dL (74-106); Potassium 4.0 mmol/L (3.5-5.1); Sodium 139 mmol/L (136-145); Total Protein 6.9 g/dL (6.4-8.2)
[2024-10-16 04:08] LABS: Cast Seen? NONE SEEN #/LPF (NONE SEEN); Crystals Seen? None Seen #/HPF (None Seen); Urine Culture Indicated NO
[2024-10-16 04:46] LABS: NT Pro B Type Natriuretic Pept 1391.0 pg/mL (<=900.0)
[2024-10-16] MEDS: METOPROLOL TARTRATE 5 MG/5 ML VIAL IVP (05:42)
[2024-10-16] MEDS: ENOXAPARIN SODIUM 80 MG/0.8 ML SYRINGE SUBQ (05:42)
== END 2024-10-16 08:17 | disposition short-term general hospital (02) ==
PROVIDERS: Emergency Provider Emergency Medicine; PCP Internal Medicine
DX: I48.0 Paroxysmal atrial fibrillation (principal); W06.XXXA Fall from bed, initial encounter; R79.89 Other specified abnormal findings of blood chemistry; R42 Dizziness and giddiness; F03.90 Unspecified dementia, unspecified severity, without behavioral disturbance, psychotic disturbance, mood disturbance, and anxiety; I51.7 Cardiomegaly
CPT/HCPCS: 36415; 70450; 71045; 72125; 80053; 81001; 83605; 83880; 84484; 85025; 93005; 96372; 96374; 99285; J1650